=== PATIENT | male | born 1965 | race Caucasian/White ===

== ENCOUNTER 2017-11-29 07:48 | Emergency (ER) | payer OTHER ==
[2017-11-29 08:33] LABS: ALT (SGPT) 52 U/L (8-55); AST (SGOT) 16 U/L (5-34); Albumin 3.9 g/dL (3.5-5.0); Alkaline Phosphatase 53 U/L (40-150); Anion Gap 12 mmol/L (10-20); BUN (Urea Nitrogen) 10 mg/dL (8.4-25.7); Bilirubin, Total 0.3 mg/dL (0.2-1.2); Calc. Creatinine Clearance 0 mL/min (70-130); Calcium 9.3 mg/dL (7.8-10.44); Carbon Dioxide 25 mmol/L (22-29); Chloride 107 mmol/L (98-107); Estimated GFR-MDRD 85; Globulin 2.7 g/dL (2.4-3.5); Glucose 125 mg/dL (70-105); Protein, Total 6.6 g/dL (6.0-8.3); Sodium 140 mmol/L (136-145)
[2017-11-29 08:35] LABS: CKMB 0.7 ng/mL (0-6.6); Troponin I Less than 0.010 ng/mL (< 0.028)
--- NOTE | 2017-11-29 10:05 | RAD ---
CHEST 2 VIEWS: DATE: 11/29/17. FINDINGS: The heart is normal in size. Mediastinum shows no widening or shift. The trachea is midline. The l ungs show no lobar infiltrate or effusion. Some minimal linear streaking near the cardiac apex, prob ably scarring or atelectasis. The bony structures appear intact. IMPRESSION: No acute thoracic finding. POS: HOME
== END 2017-11-29 09:26 | disposition home or self-care (01) ==
LOC: BURERS 07:48
DX: R07.89 Other chest pain (principal); F32.9 Major depressive disorder, single episode, unspecified; F41.9 Anxiety disorder, unspecified; I10 Essential (primary) hypertension; V43.52XA Car driver injured in collision with other type car in traffic accident, initial encounter; Y92.411 Interstate highway as the place of occurrence of the external cause
CPT/HCPCS: 36415; 71046; 80053; 82553; 84484; 93005